=== PATIENT | female | born 1975 | race Two or more races ===

== ENCOUNTER 2019-02-02 15:02 | Emergency (ER) | payer MEDICAID ==
[~2019-02-02] VITALS: Ht 152.4 cm; Wt 72.1 kg
[2019-02-02 15:06] VITALS: BP 103/58
[2019-02-02] MEDS ORDERED: IRON159 MG PO (15:09)
--- NOTE | 2019-02-02 15:10 | NUR ---
ED Nurse Note: Patient walked in to ED c/o pain on right 1st digit finger. patient reports she accidentally cut her self on 01/28/19. patient reports worsening pain radiating to her right upper arm.
--- NOTE | 2019-02-02 15:46 | Emergency Room Report ---
History of Present Illness General Chief Complaint: Upper Extremity Injury Source: Patient Present Illness HPI 43-year-old female with no significant past medical history here complaining of pain over the laceration site right index finger that happened 5 days ago. Patient reports that she was cutting vegetables with a knife as well however denies any medical attention. Now she has radiating pain from the finger all the way to her wrist rating a 10 out of 10 denies tingling and numbness has no motor or sensory deficits. Has not taken any medication for pain and has not been any treatment or considering the factors. Denies chest pain, shortness of breath, palpitation, fever and chills, nausea vomiting. Small healing infected laceration noted right index finger Allergies: Coded Allergies: No Known Allergies (Unverified , 02/02/19) Patient History Past Medical History: see triage record Past Surgical History: unable to obtain Pertinent Family History: none Last Menstrual Period: 01/19/19 Now: No Immunizations: UTD Reviewed Nursing Documentation: PMH: Agreed; PSxH: Agreed Nursing Documentation-PMH Past Medical History: No History, Except For Hx Cardiac Problems: No - anemia Review of Systems All Other Systems: negative except mentioned in HPI Physical Exam Vital Signs Date Time Temp Pulse Resp B/P (MAP) Pulse Ox O2 Delivery O2 Flow Rate FiO2 02/02/19 15:06 98.2 77 18 103/58 95 Room Air Sp02 EP Interpretation: reviewed, normal General Appearance: normal inspection, well appearing, no apparent distress, alert Head: normocephalic, atraumatic Eyes: bilateral eye normal inspection, bilateral eye PERRL ENT: normal ENT inspection, hearing grossly normal Neck: normal inspection, full range of motion, supple Respiratory: normal inspection, lungs clear, no rhonchi, no wheezing Cardiovascular #1: normal inspection, regular rate, rhythm, no murmur Cardiovascular #2: 2+ radial (R), 2+ radial (L) Gastrointestinal: normal inspection, non tender Genitourinary: no CVA tenderness Musculoskeletal: back normal, other - Healing laceration superficially infected of right index finger Neurologic: normal inspection, alert, oriented x3 Psychiatric: normal inspection, judgement/insight normal Skin: laceration - Healing laceration superficially infected right index finger Lymphatic: normal inspection, no adenopathy Medical Decision Making PA Attestation All my diagnosis and treatment plans were reviewed ad discussed with my supervising physician Dr. Lawson Diagnostic Impression: Primary Impression: Laceration of finger with infection ER Course 43-year-old female with no significant past medical history here complaining of pain over the laceration site right index finger that happened 5 days ago. Patient reports that she was cutting vegetables with a knife as well however denies any medical attention. Now she has radiating pain from the finger all the way to her wrist rating a 10 out of 10 denies tingling and numbness has no motor or sensory deficits. Has not taken any medication for pain and has not been any treatment or considering the factors. Denies chest pain, shortness of breath, palpitation, fever and chills, nausea vomiting. Small healing infected laceration noted right index finger Ddx considered but are not limited to : Superficial laceration, deep laceration , tendon involvement with laceration, laceration with foreign body Vital signs: are WNL, pt. is afebrile H&PE are most consistent with: Facial laceration with minimal superficial infection ORDERS: Finger x-ray, Keflex, ibuprofen ED INTERVENTIONS: Wound clean and dressed DISCHARGE: At this time pt. is stable for d/c to home. Will provide printed patient care instructions, and any necessary prescriptions. Care plan and follow up instructions have been discussed with the patient prior to discharge. Up-to-date with tetanus shot, follow-up with primary care provider avoid strenuous physical activity with affected side related to fever and chills worsening symptoms return to the emergency room. Other X-Ray Diagnostic Results Other X-Ray Diagnostic Results : X-Ray ordered: Finger # of Views/Limited Vs Complete: 3 View Indication: Pain EP Interpretation: Yes PA Xray: by supervising MD, and agrees with findings. Interpretation: no dislocation, no soft tissue swelling, no fractures Impression: No acute disease Electronically Signed by: Sonia Mcgowan PA-C Last Vital Signs Date Time Temp Pulse Resp B/P (MAP) Pulse Ox O2 Delivery O2 Flow Rate FiO2 02/02/19 15:06 98.2 77 18 103/58 (73) 95 Room Air Disposition: HOME, SELF-CARE Condition: Stable Scripts Ibuprofen (Ibuprofen) 800 Mg Tablet 800 MG PO BID, #20 TAB Prov: Sonia Khan 02/02/19 Cephalexin* (KEFLEX*) 500 Mg Capsule 500 MG ORAL EVERY 6 HOURS for 7 Days, #28 CAP Prov: Sonia Khan 02/02/19 Patient Instructions: Laceration Care, Adult Sonia Khan Feb 02, 2019 15:46
--- NOTE | 2019-02-02 15:47 | Diagnostic Imaging Report ---
Indication: pain in finger. trauma Findings: 3 views of the right thumb were obtained. No acute fractures, malalignment, erosions, or periosteal reaction are seen. Soft tissues are unremarkable. Impression: No acute findings.
[2019-02-02] MEDS ORDERED: CEPHALEXIN500 MG ORAL (15:48)
[2019-02-02] MEDS ORDERED: IBUPROFEN800 M1 PO (15:48)
[2019-02-02 15:57] VITALS: BP 103/58
--- NOTE | 2019-02-02 15:57 | NUR ---
ER DISCHARGE NOTE: Patient is cleared to be discharged per DOUGLAS GRAYSON, pt is aox4, on room air, with stable vital signs. pt was given dc and prescription instructions, pt was able to verbalize understanding, pt id band and removed without complications. pt is able to ambulate with steady gait. pt took all belongings.
== END 2019-02-02 16:00 | disposition home or self-care (01) ==
LOC: EMR 15:58
DX: S61.210A Laceration without foreign body of right index finger without damage to nail, initial encounter (principal); W26.0XXA Contact with knife, initial encounter; Y93.G3 Activity, cooking and baking; Y92.9 Unspecified place or not applicable
CPT/HCPCS: 99283